=== PATIENT | male | born 1965 | race Caucasian/White ===

== ENCOUNTER 2019-04-17 23:24 | Emergency (ER) | payer OTHER ==
[~2019-04-17] VITALS: Ht 162.6 cm; Wt 79.4 kg
[2019-04-17 23:24] VITALS: BP_SYST 157
--- NOTE | 2019-04-17 23:24 | NUR ---
Patient to ER H2 to gown for evaluation. Side rails up. Accompanied by STAN.
--- NOTE | 2019-04-17 23:40 | NUR ---
Pt was BIB [facility] for medical clearance. Pt states he has pain to left leg, 2/10. Per patient, hx of HTN. No other injuries/complaints per patient or noted.
--- NOTE | 2019-04-18 00:10 | NUR ---
ER Dr. Hummel at bedside examining patient.
[2019-04-18] MEDS ORDERED: cloNIDine HCL 0.1 MG TABLET PO ONE (00:15)
[2019-04-18 00:37] VITALS: BP_SYST 138
--- NOTE | 2019-04-18 00:37 | NUR ---
Patient given written and verbal discharge instructions and verbalizes understanding. ER MD discussed with patient the results and treatment provided. Patient in stable condition. ID arm band removed. No Rx given. Patient educated on pain management and to follow up with PMD. Pain Scale 0. Opportunity for questions provided and answered. Medication side effect fact sheet provided. Accompanied by GERSON.
== END 2019-04-18 00:37 ==
LOC: SED 23:24
DX: I10 Essential (primary) hypertension (principal); R53.1 Weakness
CPT/HCPCS: 99283